=== PATIENT | male | born 1980 | race Caucasian/White ===

== ENCOUNTER 2016-09-05 12:25 | Emergency (ER) | payer OTHER ==
[~2016-09-05] VITALS: Ht 180.3 cm; Wt 72.7 kg
[2016-09-05 12:25] VITALS: BP 124/85
[2016-09-05] MEDS ORDERED: ELIM5CRE2 TOP (13:13)
== END 2016-09-05 13:57 | disposition home or self-care (01) ==
LOC: M ED 12:25
DX: B86 Scabies (principal); F17.200 Nicotine dependence, unspecified, uncomplicated; Z88.0 Allergy status to penicillin

== ENCOUNTER 2016-10-10 12:53 | Emergency (ER) | payer OTHER ==
[~2016-10-10] VITALS: Ht 180.3 cm; Wt 70.5 kg
[~2016-10-10 12:53] MED LIST: ELIM5CRE2 TOP
[2016-10-10] MEDS ORDERED: NS 1,000 ML IV ONE ×2 (13:00→14:30)
[2016-10-10] MEDS ORDERED: ONDANSETRON 4MG/2ML VIAL (J2405) IV ONE (13:00)
[2016-10-10] MEDS ORDERED: MORPHINE 4 MG/ML 1ML SYRINGE IV PRN (13:00)
[2016-10-10] MEDS ORDERED: ISOVUE-370 76% 100ML VIAL (Q9967) As Ordered ONE (13:07)
[2016-10-10 13:22] LABS: BASO % 0.9 % (0.0-1.0); EOS # 0.3 K/mm3 (0.0-0.50); LARGE UNSTAINED CELL # 0.2 K/mm3 (0.0-0.4); LARGE UNSTAINED CELL % 4.2 % (0.0-4.0); LYMPH # 2.1 K/mm3 (1.5-4.5); LYMPH % 40.5 % (24.0-44.0); MEAN CORPUSCULAR HGB CONC 34.4 g/dl (32.0-36.5); MEAN CORPUSCULAR VOLUME 87.1 fl (80.0-96.0); MONO # 0.2 K/mm3 (0.0-0.8); MONO % 4.7 % (0.0-5.0); NEUTROPHILS # 2.3 K/mm3 (1.8-7.7); NEUTROPHILS % 43.7 % (36.0-66.0); PLATELET COUNT, AUTOMATED 266 k/mm3 (150-450); RED CELL DISTRIBUTION WIDTH 12.3 % (11.5-14.5); WHITE BLOOD COUNT 5.2 K/mm3 (4.0-10.0)
[2016-10-10 13:28] LABS: INR 0.96
--- NOTE | 2016-10-10 13:40 | REP ---
Clinical: Trauma. Technique: Axial contrast enhanced images from the lung bases to the pubic symphysis using 100 ml Isovue 370 intravenous contrast material with coronal and sagittal re-formations. Findings: Lung bases are clear. Visualized heart and pericardium normal. No evidence for solid organ injury. Liver, spleen, pancreas, gallbladder, bilateral adrenal glands and kidneys are normal. The enteric system is without obstruction or acute inflammatory process. Normal terminal ileum and appendix are identified in the right lower quadrant. Scattered diverticulosis noted without acute diverticulitis. Pelvis demonstrates normal bladder and age appropriate prostate/seminal vesicles. No pelvic fluid or ascites. No free air. No adenopathy. No mass lesion. Abdominal aorta and vasculature appears normal. Surrounding musculoskeletal structures are intact. Impression: Normal contrast enhanced CT of the abdomen and pelvis. No acute abdominopelvic pathology or trauma/injury. Signed by Elier Clark MD 10/10/2016 01:31 P
[2016-10-10 13:48] LABS: ALBUMIN 3.7 GM/DL (3.2-5.2); ALBUMIN/GLOBULIN RATIO 1.19 (1.00-1.93); ALKALINE PHOSPHATASE 41 U/L (45-117); ALT/SGPT 25 U/L (12-78); AMYLASE 47 U/L (25-115); ANION GAP 8 MEQ/L (8-16); AST/SGOT 9 U/L (15-37); BILIRUBIN,DIRECT < 0.1 MG/DL (0.0-0.2); BILIRUBIN,TOTAL 0.4 MG/DL (0.2-1.0); BLOOD UREA NITROGEN 15 MG/DL (7-18); CALCIUM LEVEL 8.8 MG/DL (8.5-10.1); CARBON DIOXIDE LEVEL 28 MEQ/L (21-32); CHLORIDE LEVEL 106 MEQ/L (98-107); CREATININE FOR GFR 1.09 MG/DL (0.70-1.30); GLOMERULAR FILTRATION RATE > 60.0 (>60); GLUCOSE, FASTING 109 MG/DL (70-105); POTASSIUM SERUM 3.9 MEQ/L (3.5-5.1); SODIUM LEVEL 142 MEQ/L (136-145); TOTAL PROTEIN 6.8 GM/DL (6.4-8.2)
--- NOTE | 2016-10-10 14:02 | REP ---
Clinical: Pain. Technique: AP, lateral, bilateral oblique views right wrist. Findings: The carpal bones, surrounding osseous structures, soft tissues, and joint spaces are normal. There is no evidence for acute fracture or dislocation. No subcutaneous emphysema or radiodense foreign body. Impression: No acute fracture or dislocation Signed by Elier Clark MD 10/10/2016 01:53 P
--- NOTE | 2016-10-10 14:03 | REP ---
Clinical: Trauma. Technique: Single AP view of the pelvis. Findings: Structures and joint spaces are intact and normal. Surrounding soft tissues are unremarkable. Contrast noted in the bladder consistent with recent CT. Impression: Normal pelvic radiograph. Signed by Elier Clark MD 10/10/2016 01:54 P
--- NOTE | 2016-10-10 14:05 | REP ---
Clinical: Trauma. Technique: AP, lateral, bilateral oblique views right hand. Findings: The osseous structures and joint spaces are intact and normal. There is no evidence for acute fracture or dislocation. Surrounding soft tissues are unremarkable. No subcutaneous emphysema. Chronic radiodense foreign body in the soft tissues overlying the first digit proximal phalanx. Impression: No acute fracture or dislocation. Chronic foreign body. Signed by Elier Clark MD 10/10/2016 01:56 P
--- NOTE | 2016-10-10 14:06 | REP ---
Clinical: Trauma. Technique: AP and frog lateral views of the right hip. Findings: No acute fracture dislocation. Skeletal structures, joint spaces, and surrounding soft tissues are normal for age. No subcutaneous emphysema. Impression: No acute fracture or dislocation. Signed by Elier Clark MD 10/10/2016 01:57 P
--- NOTE | 2016-10-10 14:07 | REP ---
Clinical: Trauma . Comparison: 07/03/2012 . Findings: The mediastinum and cardiac silhouette are stable and within normal limits for portable technique. The lung glez are clear without acute consolidation, effusion, or pneumothorax. Skeletal structures are intact. Impression: No acute cardiopulmonary process appreciated. Signed by Elier Clark MD 10/10/2016 01:58 P
--- NOTE | 2016-10-10 14:36 | REP ---
Clinical: Trauma. Technique: Axial noncontrast images through the right hip with coronal and sagittal re-formations. Findings: The visualized osseous structures are intact. There is no evidence for acute fracture or dislocation. The surrounding soft tissues and musculature are normal. No obvious hematoma, laceration, or subcutaneous traumatic infiltration is appreciated. Vascular structures are normal. No foreign body. Impression: Normal noncontrast hip CT. No acute trauma/injury. Signed by Elier Clark MD 10/10/2016 02:28 P
[2016-10-10] MEDS ORDERED: PERCOCET 5MG/325MG TAB PO ONE (14:45)
[2016-10-10] MEDS ORDERED: NORCOTAB PO (15:24)
[2016-10-10 16:10] VITALS: BP 122/71
--- NOTE | 2016-10-10 19:41 | ECGEPIP ---
Stationary ECG Study [facility] - ED Test Date: 2016-10-10 Pat Name: EFRAIN GALEAS Department: Room: - Gender: M Fishing Worker: marleny : 1980 Requested By: Minesh Kaiser Order Number: [id number] Reading MD: Minesh Kaiser Measurements Intervals [place] Rate: 93 P: 51 RI: 124 QRS: 42 QRSD: 106 T: 35 QT: 370 QTc: 461 Interpretive Statements SINUS RHYTHM SHORT RI INTERVAL MODERATE IVCD CW 04/22/14 - RATE INCREASED Electronically Signed On 10-10-2016 19:41:08 EDT by Minesh Kaiser
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
== END 2016-10-10 16:13 | disposition home or self-care (01) ==
LOC: EDBD 12:53 → M ED 12:53
DX: S30.1XXA Contusion of abdominal wall, initial encounter (principal); S60.221A Contusion of right hand, initial encounter; S60.211A Contusion of right wrist, initial encounter; S60.511A Abrasion of right hand, initial encounter; W23.0XXA Caught, crushed, jammed, or pinched between moving objects, initial encounter; Y92.9 Unspecified place or not applicable; Y93.9 Activity, unspecified; Y99.0 Civilian activity done for income or pay; F17.200 Nicotine dependence, unspecified, uncomplicated; Z88.0 Allergy status to penicillin
CPT/HCPCS: 71010; 72170; 73110; 73130; 73502; 73700; 74177; 80048; 80076; 82150; 82550; 82553; 83605; 83690; 85025; 85610; 85730; 86850; 86900; 86901; 93005; 93041; 94760; 96361; 96374; 96375; 99291; J2405; Q9967

== ENCOUNTER 2017-06-14 08:50 | Emergency (ER) | payer OTHER | END 2017-06-14 11:49 | disposition home or self-care (01) | LOC: M ED 08:50 | DX: J18.9 Pneumonia, unspecified organism (principal); R03.0 Elevated blood-pressure reading, without diagnosis of hypertension; F17.200 Nicotine dependence, unspecified, uncomplicated; Z88.0 Allergy status to penicillin | CPT/HCPCS: 71046 ==

== ENCOUNTER → 2020-09-04 | Outpatient (CLI) | payer OTHER ==
[~2020-09-04] MED LIST changes: +AZIT-12 PO; +HYDR-3715 PO
--- NOTE | 2020-09-04 09:34 | REP ---
INDICATION: RIGHT LOWER QUADRANT PAIN. TECHNIQUE: Supine and upright views of the abdomen FINDINGS: Supine and upright views of the abdomen show the intestinal gas pattern to be nonspecific. The organs, silhouettes and so far as delineated appear unremarkable. The stool pattern appears within normal limits. The accompanying single frontal view of the chest shows no cardiomegaly, free subdiaphragmatic air, infiltrates, or effusions. IMPRESSION: Nonspecific intestinal gas pattern. <Electronically signed by Anthony Lozano > 09/04/20 [id number]
[2020-09-04 12:06] LABS: BASO # 0.1 10^3/uL (0.0-0.2); BASO % 0.8 % (0.0-1.0); EOS # 0.3 10^3/uL (0.0-0.5); EOS % 5.2 % (0.0-3.0); HEMATOCRIT 46.4 % (42.0-52.0); HEMOGLOBIN 15.2 g/dl (13.5-17.5); LYMPH # 1.8 10^3/uL (1.5-5.0); LYMPH % 30.7 % (24.0-44.0); MEAN CORPUSCULAR HEMOGLOBIN 28.7 pg (27.0-33.0); MEAN CORPUSCULAR HGB CONC 32.8 g/dl (32.0-36.5); MEAN CORPUSCULAR VOLUME 87.5 fl (80.0-96.0); MONO # 0.5 10^3/uL (0.0-0.8); MONO % 8.8 % (2.0-8.0); NEUTROPHILS # 3.2 10^3/uL (1.5-8.5); PLATELET COUNT, AUTOMATED 286 10^3/uL (150-450); WHITE BLOOD COUNT 5.9 10^3/uL (4.0-10.0)
[2020-09-04 12:33] LABS: ALBUMIN 4.2 GM/DL (3.2-5.2); ALT/SGPT 25 U/L (12-78); BILIRUBIN,TOTAL 0.5 MG/DL (0.2-1.0); BLOOD UREA NITROGEN 14 MG/DL (7-18); CALCIUM LEVEL 9.8 MG/DL (8.5-10.1); CARBON DIOXIDE LEVEL 32 MEQ/L (21-32); CHLORIDE LEVEL 104 MEQ/L (98-107); CREATININE FOR GFR 1.05 MG/DL (0.70-1.30); GLOMERULAR FILTRATION RATE > 60.0 (>60); GLUCOSE, FASTING 107 MG/DL (70-100); POTASSIUM SERUM 4.1 MEQ/L (3.5-5.1); SODIUM LEVEL 139 MEQ/L (136-145); TOTAL PROTEIN 7.1 GM/DL (6.4-8.2)
[2020-09-04 13:26] LABS: ERYTHROCYTE SEDIMENTATION RATE 2 mm/hr (0-15)
== END ==
LOC: M WUC 09:07
PROVIDERS: ATTEND Physician Assistant
DX: R10.813 Right lower quadrant abdominal tenderness (principal)

== ENCOUNTER → 2020-09-05 | Outpatient (CLI) | payer OTHER ==
[~2020-09-05] MED LIST changes: +GASTROGRAFIN SOLUTION 30ML (Q9963) As Ordered ONE; +ISOVUE-370 76% 100ML VIAL As Ordered ONE
--- NOTE | 2020-09-05 12:07 | REP ---
INDICATION: RLQ PAIN. Right lower quadrant pain and tenderness. COMPARISON: Comparison CT study October 10, 2016.. TECHNIQUE: Helical scanning is acquired and 3 mm axial images re-formatted. Coronal and sagittal MPR images are generated. The CT contrast enhancement dose is 100 mL of intravenous Isovue 370. Oral contrast was also administered. FINDINGS: Preliminary digital research and development engineer radiograph demonstrates an unremarkable bowel gas pattern. The lung bases are clear on axial CT images. There is no evidence of pleural effusion or upper abdominal ascites. The liver and spleen are normal in size homogeneous in texture. No focal liver lesion is seen. No abnormality is noted in the pancreas. There is minimal gallbladder wall enhancement. This is unchanged from the October 10, 2016 prior study. No stone is seen by CT. The kidneys enhance symmetrically and are morphologically intact. Normal caliber aorta. No retroperitoneal mass or adenopathy is seen. Small and large intestinal bowel loops are unremarkable in the abdomen and pelvis. A normal appendix is seen in the right lower quadrant. Seminal vesicles, prostate, and urinary bladder are normal in appearance. No abdominal wall defect or bony destructive lesion is seen. IMPRESSION: No acute abdominal or pelvic abnormality. Normal appendix seen. <Electronically signed by Ronnell Duque > 09/05/20 [id number]
== END ==
LOC: M RAD 10:00
PROVIDERS: ATTEND Physician Assistant
DX: R10.813 Right lower quadrant abdominal tenderness (principal)
CPT/HCPCS: 74177; Q9963; Q9967

== ENCOUNTER 2021-01-23 09:22 | Emergency (ER) | payer BC, OTHER ==
[~2021-01-23] VITALS: Ht 180.3 cm; Wt 84.0 kg
[~2021-01-23 09:22] MED LIST changes: -GASTROGRAFIN SOLUTION 30ML (Q9963) As Ordered ONE; -ISOVUE-370 76% 100ML VIAL As Ordered ONE
[2021-01-23 10:45] LABS: BASO % 0.7 % (0.0-1.0); EOS # 0.1 10^3/uL (0.0-0.5); HEMATOCRIT 42.7 % (42.0-52.0); HEMOGLOBIN 14.4 g/dl (13.5-17.5); LYMPH # 1.5 10^3/uL (1.5-5.0); LYMPH % 26.1 % (24.0-44.0); MEAN CORPUSCULAR HEMOGLOBIN 29.2 pg (27.0-33.0); MEAN CORPUSCULAR HGB CONC 33.7 g/dl (32.0-36.5); MEAN CORPUSCULAR VOLUME 86.6 fl (80.0-96.0); MONO # 0.5 10^3/uL (0.0-0.8); MONO % 8.1 % (2.0-8.0); NEUTROPHILS # 3.7 10^3/uL (1.5-8.5); NEUTROPHILS % 62.6 % (36.0-66.0); PLATELET COUNT, AUTOMATED 290 10^3/uL (150-450); RED BLOOD COUNT 4.93 10^6/uL (4.30-6.10); WHITE BLOOD COUNT 5.9 10^3/uL (4.0-10.0)
[2021-01-23 11:10] LABS: ALBUMIN 3.8 GM/DL (3.2-5.2); ALT/SGPT 24 U/L (12-78); BILIRUBIN,DIRECT 0.2 MG/DL (0.0-0.2); BILIRUBIN,TOTAL 0.5 MG/DL (0.2-1.0); BLOOD UREA NITROGEN 14 MG/DL (7-18); CALCIUM LEVEL 8.8 MG/DL (8.5-10.1); CARBON DIOXIDE LEVEL 29 MEQ/L (21-32); CHLORIDE LEVEL 109 MEQ/L (98-107); CREATININE FOR GFR 1.14 MG/DL (0.70-1.30); GLOMERULAR FILTRATION RATE > 60.0 (>60); GLUCOSE, FASTING 104 MG/DL (70-100); POTASSIUM SERUM 4.3 MEQ/L (3.5-5.1); SODIUM LEVEL 142 MEQ/L (136-145); TOTAL PROTEIN 6.7 GM/DL (6.4-8.2)
[2021-01-23 11:11] LABS: LIPASE 66 U/L (73-393); NT-PRO BNP 46 PG/ML (<125)
[2021-01-23 11:26] LABS: CK-MB VALUE MASS < 1.0 NG/ML (<3.6); CPK CREATINE PHOSPHOKINASE 79 U/L (39-308); MB/CK RELATIVE INDEX 1.27 (< OR =4)
[2021-01-23] MEDS ORDERED: NS 1,000 ML IV ONE (11:50)
[2021-01-23] MEDS ORDERED: ISOVUE-370 76% 100ML VIAL As Ordered ONE (11:51)
[2021-01-23] MEDS ORDERED: NAPR-837 PO (13:24)
[2021-01-23 13:57] VITALS: BP 130/89
== END 2021-01-23 14:10 | disposition home or self-care (01) ==
LOC: M ED 09:22
DX: R07.9 Chest pain, unspecified (principal); M54.12 Radiculopathy, cervical region; R94.31 Abnormal electrocardiogram [ECG] [EKG]; R91.8 Other nonspecific abnormal finding of lung field; F17.200 Nicotine dependence, unspecified, uncomplicated; Z88.0 Allergy status to penicillin
CPT/HCPCS: 36415; 71045; 71275; 80048; 80076; 82550; 82553; 83690; 83880; 85025; 93005; 93041; 94760; 96360; 99285; Q9967

== ENCOUNTER 2021-05-27 08:10 | Emergency (ER) | payer BC, SELFPAY ==
[~2021-05-27] VITALS: Ht 180.3 cm; Wt 86.0 kg
[~2021-05-27 08:10] MED LIST changes: +NAPR-837 PO
[2021-05-27] MEDS ORDERED: KETOROLAC 30 MG/ML 1ML VIAL IM ONE (09:20)
[2021-05-27] MEDS ORDERED: ACETAMINOPHEN 325 MG TAB PO ONE (09:20)
[2021-05-27 10:36] VITALS: BP 151/88
[2021-05-27] MEDS ORDERED: MEDR4PAK PO (10:47)
[2021-05-27] MEDS ORDERED: METH-1165 PO (10:47)
== END 2021-05-27 11:13 | disposition home or self-care (01) ==
LOC: M ED 08:10
DX: M54.12 Radiculopathy, cervical region (principal); M50.33 Other cervical disc degeneration, cervicothoracic region; F17.200 Nicotine dependence, unspecified, uncomplicated; Z88.0 Allergy status to penicillin
CPT/HCPCS: 72040; 96372; 99283; J1885

== ENCOUNTER 2021-12-17 09:44 | Outpatient (RCR) | payer BC ==
[~2021-12-17 09:44] MED LIST changes: +MEDR4PAK PO; +METH-1165 PO
== END 2022-01-07 ==
LOC: M PT 09:44
PROVIDERS: ATTEND Orthopaedic Surgery
DX: Z47.89 Encounter for other orthopedic aftercare (principal); Z98.890 Other specified postprocedural states

== ENCOUNTER 2023-09-05 16:56 | Emergency (ER) | payer SELFPAY ==
[~2023-09-05] VITALS: Ht 180.3 cm; Wt 76.4 kg
[2023-09-05 19:08] LABS: BASO % 0.4 % (0.0-1.0); EOS # 0.2 10^3/uL (0.0-0.5); EOS % 2.9 % (0.0-3.0); HEMATOCRIT 41.4 % (42.0-52.0); HEMOGLOBIN 14.1 g/dl (13.5-17.5); LYMPH # 2.1 10^3/uL (1.5-5.0); LYMPH % 28.6 % (24.0-44.0); MEAN CORPUSCULAR HGB CONC 34.1 g/dl (32.0-36.5); MEAN CORPUSCULAR VOLUME 88.1 fl (80.0-96.0); MONO # 0.7 10^3/uL (0.0-0.8); MONO % 9.6 % (2.0-8.0); NEUTROPHILS # 4.2 10^3/uL (1.5-8.5); NEUTROPHILS % 58.2 % (36.0-66.0); PLATELET COUNT, AUTOMATED 296 10^3/uL (150-450); WHITE BLOOD COUNT 7.2 10^3/uL (4.0-10.0)
[2023-09-05] MEDS: BOOSTRIX VACCINE (TETANUS/DIPHTH/ACEL. PERTUSSIS) 0.5ML SYR IM ONE (19:19)
[2023-09-05 19:32] LABS: BLOOD UREA NITROGEN 7 MG/DL (9-23); CALCIUM LEVEL 9.3 MG/DL (8.5-10.1); CARBON DIOXIDE LEVEL 27 MMOL/L (20-31); CHLORIDE LEVEL 104 MMOL/L (98-107); CREATININE FOR GFR 0.86 MG/DL (0.70-1.30); GLOMERULAR FILTRATION RATE > 60.0 (>60); GLUCOSE, FASTING 93 MG/DL (60-100); POTASSIUM SERUM 4.3 MMOL/L (3.5-5.1); SODIUM LEVEL 135 MMOL/L (136-145)
[2023-09-05] MEDS ORDERED: METR-265 PO (21:06)
[2023-09-05] MEDS ORDERED: DOXY-323 PO (21:06)
[2023-09-05] MEDS: DOXYCYCLINE HYCLATE 100MG TABLET PO ONE (21:07)
[2023-09-05] MEDS: metroNIDAZOLE (FLAGYL) 500MG TABLET PO ONE (21:07)
[2023-09-05 21:17] VITALS: BP 138/86; TEMP 97.2; O2SAT 99
== END 2023-09-05 21:18 | disposition home or self-care (01) ==
LOC: M ED 16:56
DX: S81.851A Open bite, right lower leg, initial encounter (principal); W54.0XXA Bitten by dog, initial encounter; Y92.9 Unspecified place or not applicable; Y93.9 Activity, unspecified; Y99.9 Unspecified external cause status; Z88.0 Allergy status to penicillin; Z79.2 Long term (current) use of antibiotics; Z23 Encounter for immunization